=== PATIENT | female | born 1985 | race African-American/Black ===

== ENCOUNTER 2019-03-12 19:20 | Emergency (ER) | payer OTHER ==
[~2019-03-12] VITALS: Ht 160 cm; Wt 107.0 kg
[2019-03-12] MEDS ORDERED: IBUPROFEN 600600 M1 PO (21:34)
[2019-03-12] MEDS ORDERED: KEFLEX500 M1 PO (21:34)
[2019-03-12 21:49] VITALS: BP 114/79
== END 2019-03-12 21:50 | disposition home or self-care (01) ==
LOC: ER 19:20
DX: N61.0 Mastitis without abscess (principal)